=== PATIENT | female | born 1975 | race Caucasian/White ===

== ENCOUNTER 2020-12-07 14:18 | Emergency (ER) | payer OTHER ==
--- NOTE | 2020-12-07 14:46 | EDM.PDOC ---
ED HPI GENERAL MEDICAL PROBLEM - General Chief Complaint: General Stated Complaint: CALCIUM LEVEL NEED TO BE CHECKED Time Seen by Provider: 12/07/20 14:30 Source of Information: Reports: Patient History Limitations: Reports: No Limitations - History of Present Illness INITIAL COMMENTS - FREE TEXT/NARRATIVE: 45-year-old female attends the ED with concerns of possible hypocalcemia secondary to having parathyroidectomy surgery carried out in [facility] on Friday, December 04. The surgeons name is Dr. Luca Newberry--he gave me a call and indicated that the patient seen be struggling with hypocalcemia symptoms and spite of having increased her dosage of 650 mg supplements to 11 tablets so far today. Patient is experiencing GI upset at this time secondary to the amount of calcium she is taking. It is also going to cause constipation. Patient states she feels lightheaded, dizzy and woozy but she feels she is certainly taking in adequate amounts of fluids and nutrition. She is not getting any carpopedal spasm more spasms of any muscles periorally or periocular. She does have some numbness and tingling in her face which is characteristic of hypocalcemia. She can walk okay as well. Her surgical scar looks to be healing well. 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 The other three were left alone. Onset: Gradual Onset Date: 12/05/20 Duration: Day(s):, Getting Worse, Waxing/Waning Location: Reports: Face (Esthesia is both sides of her face perhaps a little worse on the left as compared to the right.), Other (Is lightheaded kind of dizzy and woozy feeling like she been drinking which she has not.) Quality: Reports: Other (Just not feeling right post parathyroidectomy 4 days ago.) Severity: Mild Improves with: Reports: None, Other (So far she has taken 11 650 mg tablets of calcium carbonate without relief of symptoms that are suggestive of hypo-Sunny C. Annia) Worsens with: Reports: None Context: Reports: Other (Parathyroidectomy carried out in [facility] 4 days ago). Denies: Activity, Exercise, Lifting, Sick Contact, Trauma Associated Symptoms: Reports: Confusion, Malaise, Weakness, Other (Facial numbness and tingling. No carpopedal spasm. Feels slightly lightheaded woozy and slightly dizzy.). Denies: Chest Pain, Cough (Perhaps mildly confused at times.), cough w sputum, Diaphoresis, Fever/Chills, Headaches, Loss of Appetite, Nausea/Vomiting, Rash, Seizure, Shortness of Breath, Syncope Treatments CLASSIFICATION CLERK: Reports: Other (see below) Other Treatments CLASSIFICATION CLERK: Citracal + D3 - Related Data Allergies Allergy/AdvReac Type Severity Reaction Status Date / Time fluconazole [From Diflucan] Allergy Severe Burning Verified 12/07/20 14:41 Home Meds: Home Meds Calcium/D3/Zinc/Copper/Carolyne [Citracal-D3 Maximum Plus Caplt] 0 tab PO ASDIRECTED 12/07/20 [History] Lactobacillus Combination No.4 [Probiotic] 1 each PO DAILY 12/07/20 [History] Methylphenidate HCl [Methylphenidate ER] 10 mg PO BID 12/07/20 [History] Psyllium Husk [Metamucil] 2 cap PO DAILY 12/07/20 [History] Past Medical History Endocrine/Metabolic History: Reports: Hyperparathyroidism (Had parathyroid gland surgeon operated on her 4 days ago December 04 with 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 Denies: Fever, Chills, Malaise, Weakness, Decreased Appetite (Mild), Weight Loss HEENT: Reports: Other (Mild throat pain at site of recent parathyroid hormone surgery) Respiratory: Reports: No Symptoms Cardiovascular: Reports: No Symptoms Endocrine: Reports: No Symptoms, Other (Recent parathyroid hormone surgery with some symptoms of hypocalcemia clinically) GI/Abdominal: Reports: Other (Dyspepsia from all the calcium tablets that she has been taking.) : Reports: No Symptoms Musculoskeletal: Reports: No Symptoms Skin: Reports: No Symptoms Neurological: Reports: Paresthesia (Both sides of her face slightly worse on the left as compared to the right.), Weakness (Feels weak in her muscles.) Psychiatric: Reports: Anxiety Hematologic/Lymphatic: Reports: No Symptoms Immunologic: Reports: No Symptoms ED EXAM, GENERAL - Physical Exam Exam: See Below Exam Limited By: No Limitations General Appearance: Alert, WD/WN, No Apparent Distress, Other (Temperature is 36.5 degrees. Heart rate 71 in sinus respiratory is 12 with O2 sats of 100% room air. BP slightly elevated 1 5591.) Eye Exam: Bilateral Eye: Normal Inspection (No scleral icterus or blepharal pallor.), PERRL Throat/Mouth: Normal Inspection, Normal Lips, Normal Teeth, Normal Oropharynx Head: Atraumatic, Normocephalic, Other (Negative Chvostek's sign) Neck: Other (Recent anterior neck surgery done in the midline and is approximately an inch in length covered by one strip of Steri-Strip minimal amount of swelling and no ecchymoses. Patient has minimal discomfort with swallowing.) Respiratory/Chest: No Respiratory Distress ( It is mildly tender and appropriately swollen and bruised.), Lungs Clear, Normal Breath Sounds, No Accessory Muscle Use Cardiovascular: Normal Peripheral Pulses, Regular Rate, Rhythm, No Edema, No Gallop, No Murmur, No Rub Peripheral Pulses: 3+: Carotid (L), Carotid (R), Posterior Tibial (L), Posterior Tibial (R), Dorsalis Pedis (L), Dorsalis Pedis (R) GI/Abdominal: Normal Bowel Sounds, Soft, Non-Tender, No Organomegaly, No Mass, Pelvis Stable Extremities: Normal Inspection, Normal Range of Motion, Non-Tender, No Pedal Edema Neurological: Alert, Oriented, CN II-XII Intact, Normal Cognition, Normal Gait, Normal Reflexes (1+ at both knees 2+ at both biceps and brachioradialis.) Psychiatric: Normal Affect, Normal Mood, Anxious Skin Exam: Warm (Mildly anxious.), Dry, Intact, Normal Color, No Rash, Other (Surgical wound anterior neck shows minimal amount of bruising and swelling.) Course - Vital Signs Last Recorded V/S: Last Vital Signs Temp 36.5 C 12/07/20 14:33 Pulse 71 12/07/20 14:33 Resp 12 12/07/20 14:33 BP 155/91 H 12/07/20 14:33 Pulse Ox 100 12/07/20 14:33 - Orders/Labs/Meds Labs: Laboratory Tests 12/07/20 Range/Units 14:39 Sodium 145 (136-145) mEq/L Potassium 3.6 (3.5-5.1) mEq/L Chloride 105 (98-107) mEq/L Carbon Dioxide 29 (21-32) mEq/L Anion Gap 14.6 (5-15) BUN 7 (7-18) mg/dL Creatinine 0.8 (0.55-1.02) mg/dL Est Cr Clr Drug Dosing 87.27 mL/min Estimated GFR (MDRD) > 60 (>60) mL/min BUN/Creatinine Ratio 8.8 L (14-18) Glucose 96 (70-99) mg/dL Calcium 10.0 (8.5-10.1) mg/dL Magnesium 1.8 (1.8-2.4) mg/dL Total Bilirubin 0.3 (0.2-1.0) mg/dL AST 19 (15-37) U/L ALT 26 (14-59) U/L Alkaline Phosphatase 69 (46-116) U/L Total Protein 7.5 (6.4-8.2) g/dl Albumin 3.8 (3.4-5.0) g/dl Globulin 3.7 gm/dL Albumin/Globulin Ratio 1.0 (1-2) - Radiology Interpretation Free Text/Narrative:: 45-year-old female presents to the ED with some signs and symptoms of hypocalcemia post resection of one of her parathyroid glands done by a parathyroid gland surgeon in [facility] 4 days ago December 04. He states that he resected 1 gland that had a tumorous disposition and the other 3 were left in situ. She is on a progressive oral calcium supplementation program per his orders. Today she has taken 11 tablets of 650 mg strength calcium and is still seems to be having some signs and symptoms of hypocalcemia particularly complaining of paresthesias of her face weakness in her hands with no carpopedal spasm. Complaining of indigestion from so much calcium intake. He therefore suggested she come to the emergency room after calling me to have a serum calcium level checked and then I will call him back. Patient has a negative exam for any obvious significant hypocalcemia. - Re-Assessments/Exams Free Text/Narrative Re-Assessment/Exam: 12/07/20 15:37 Chemistry reveals a sodium of 145 and a potassium of 3.6. Chloride is 105 with a bicarb of 29. Anion gap is 14.6. BUN is 7 with a creatinine of 0.8 and a GFR greater than 60. BUN/creatinine ratio is 8.8. Glucose is 96 and a calcium is 10.0. Magnesium 1.8. Liver function normal. Alkaline phosphatase is 69 total protein is 7.5 with an albumin fraction of 3.8. All normal. Alison the findings with the patient and her parathyroid surgeon in [facility] and he will call her later today to discuss calcium supplementation until her body adjusts to the lower levels of parathyroid hormone. Departure - Departure Time of Disposition: 15:46 Disposition: Home, Self-Care 01 Condition: Fair Clinical Impression: S/P parathyroidectomy - Discharge Information *PRESCRIPTION DRUG MONITORING PROGRAM REVIEWED*: Not Applicable *COPY OF PRESCRIPTION DRUG MONITORING REPORT IN PATIENT [place]: Not Applicable Referrals: Douglas Ashby MD [Primary Care Provider] - Forms: ED Department Discharge Additional Instructions: Evaluation in the emergency room today in regards to generally not feeling well after having parathyroid hormone resection carried out in [facility] on December 04. Decision made to have your calcium levels checked in the emergency room today and I did speak with your surgeon and indicated that your current calcium level today is in the normal range at 10.0. It appears that your symptoms are still that of adjustment to lower parathyroid hormone levels which take a few weeks to normalize after having a parathyroid hormone tumor taken out. The other parathyroid hormone glands that have been left now have to take over and go back to work as they had been on holidays because the tumor was making most of the parathyroid hormone for your body. indicated he will be in contact with you by phone in the next few hours to discuss calcium supplementation. Sepsis Event Note (ED) - Evaluation Sepsis Screening Result: No Definite Risk - Focused Exam Vital Signs: Vital Signs Temp Pulse Resp BP Pulse Ox 12/07/20 14:33 36.5 C 71 12 155/91 H 100
== END 2020-12-07 16:07 | disposition home or self-care (01) ==
LOC: JD.ED 14:18
DX: E89.2 Postprocedural hypoparathyroidism (principal); Z88.8 Allergy status to other drugs, medicaments and biological substances
CPT/HCPCS: 36415; 80053; 83735; 99283; 99284